=== PATIENT | male | born 1940 | race Caucasian/White ===

== ENCOUNTER → 2021-03-09 | Outpatient (CLI) | payer MEDICARE ==
--- NOTE | 2021-03-09 12:05 | CT ---
EXAMINATION TYPE: CT brain wo con DATE OF EXAM: 03/09/2021 COMPARISON: Dizziness HISTORY: dizziness CT DLP: 1047.1 mGycm Automated exposure control for dose reduction was used. FINDINGS: Mild generalized degenerative change of the low attenuation in the white matter which is. No midline shift or mass effect. No acute hemorrhage. Low-attenuation foci within the basal ganglia compatible w ith remote lacunar infarct. Craniocervical junction maintained. Sella turcica has a normal appearance. Orbits are symmetric. Sinu ses are clear. IMPRESSION: DEGENERATIVE AND NONSPECIFIC WHITE MATTER CHANGES MOST TYPICAL REMOTE ISCHEMIA.
--- NOTE | 2021-03-09 16:05 | US ---
EXAMINATION TYPE: US carotid duplex BILAT DATE OF EXAM: 03/09/2021 COMPARISON: NONE CLINICAL HISTORY: R42 DIZZINESS AND GIDDINESS. vertigo, no h/o stroke EXAM MEASUREMENTS: RIGHT: Peak Systolic Velocity (PSV) cm/sec ----- Right CCA: 77.3 ----- Right ICA: 63.8 ----- Right ECA: 7.5 ICA/CCA ratio: 0.8 RIGHT: End Diastole cm/sec ----- Right CCA: 8.4 ----- Right ICA: 20.4 ----- Right ECA: 12.5 LEFT: Peak Systolic Velocity (PSV) cm/sec ----- Left CCA: 106.2 ----- Left ICA: 72.8 ----- Left ECA: 61.4 ICA/CCA ratio: 0.7 LEFT: End Diastole cm/sec ----- Left CCA: 21.4 ----- Left ICA: 23.7 ----- Left ECA: 9.5 VERTEBRALS (direction of flow): Right Vertebral: Antegrade Left Vertebral: Antegrade Rhythm: Normal Mild homogeneous plaque with no significant stenosis seen incidental enlarged left thryoid gland IMPRESSION: 1. Atheromatous plaquing without significant flow-limiting stenosis. 2. Enlarged heterogenous left lobe thyroid. Consider complete thyroid workup with ultrasound. NASCET criteria was used in interpretation of this exam? Criteria for Assigning % of Stenosis / Diameter reduction (Estimation based on the indirect measurements of the internal carotid artery velocities (ICA PSV). 1. Normal (no stenosis)=ICA PSV < 125 cm/s: ratio < 2.0: ICA EDV<40 cm/s. 2. Less than 50% stenosis=ICA PSV < 125 cm/s: ratio < 2.0: ICA EDV<40 cm/s. 3. 50 to 69% stenosis=ICA PSV of 125 to 230 cm/s: ration 2.0 ? 4.0: ICA EDV 40-100 cm/s. 4. Greater than 70% stenosis to near occlusion= ICA PSV > 230 cm/s: ratio > 4.0: ICA EDV > 100 cm/s. 5. Near occlusion= ICA PSV velocities may be low or undetectable: variable ratio and ICA EDV. 6. Total occlusion=unable to detect flow.
== END | disposition home or self-care (01) ==
LOC: RADCTMAIN 10:35
PROVIDERS: ATTEND Family Medicine
DX: R42 Dizziness and giddiness (principal)
CPT/HCPCS: 70450; 93880

== ENCOUNTER → 2021-04-16 | Outpatient (CLI) | payer MEDICARE ==
--- NOTE | 2021-04-16 21:39 | MR ---
EXAMINATION TYPE: MR brain wo/w con DATE OF EXAM: 04/16/2021 COMPARISON: CT brain 03/09/2021 HISTORY: Dizziness, light headed. TECHNIQUE: Multiplanar, multisequence images of the brain and brainstem is performed without and with IV contras t, utilizing 10 mL intravenous Gadavist . FINDINGS: Diffusion weighted images demonstrate no evidence of a recent infarct or other diffusion ab normality. There is no extra-axial fluid collection. Some pericallosal hyperintensity and inversion recovery T2-weighted sequences is noted The ventricular system and cisternal spaces are normal in siz e and appearance. The brain volume is age appropriate, stable there is cortical atrophy, small lacun ar infarct again noted in the basal ganglia on the left. Midline structures demonstrate normal morphology. The craniocervical junction appears within normal limits. Post contrast images demonstrate no abnormal enhancement. The dural venous sinuses appear pa tent. The visualized sinuses are remarkable for inflammatory change in the left maxillary sinus and e thmoid air cells and the globes are intact. IMPRESSION: Age-related changes of atrophy and chronic small vessel ischemia, sinus disease
== END | disposition home or self-care (01) ==
LOC: RADMRIMAIN 19:31
PROVIDERS: ATTEND Family Medicine
DX: I67.82 Cerebral ischemia (principal)
CPT/HCPCS: 70553; A9585

== ENCOUNTER → 2021-04-30 | Outpatient (CLI) | payer MEDICARE ==
--- NOTE | 2021-04-30 16:32 | US ---
EXAMINATION TYPE: US thyroid st tissue head/neck DATE OF EXAM: 04/30/2021 COMPARISON: NONE CLINICAL HISTORY: E04.1 nontoxic single thyroid nodule. nodule seen on previous carotid US GLAND SIZE: Right Lobe: 5.9 x 1.7 x 4.2 cm Overall Parenchyma: heterogenous Left Lobe: 7.8 x 4.8 x 5.3 cm Overall Parenchyma: heterogeneous Isthmus Thickness: 1.0 cm NODULES RIGHT: # of nodules measured on right: 1 1. 3.8 X 1.4 x 2.3 cm, mid solid or almost completely solid, isoechoic nodule, which is taller than wide, with ill-defined margins, without echogenic foci. Prior size: [employer] LEFT: # of nodules measured on left: 1 1. 5.7 X 4.7 x 3.8 cm, mid, solid or almost completely solid, hyperechoic nodule, which is wider th an tall, with smooth margins, without echogenic foci. Prior size: [employer] ISTHMUS: # of nodules measured in the isthmus: 0 Bilateral neck scanned, no evidence of lymphadenopathy. Heterogeneous enlarged thyroid with nodules marked by the technologist, on the right not convinced tr ue nodule. Left nodule is larger with some better visualized margins at least on transverse imaging. IMPRESSION: As above. Dominant 5.7 cm left thyroid nodule. TR3 lesion. Mildly suspicious. FNA samplin g is advised. 2017 ACR TI-RADS LEVEL: TR-RADS 3 - Mildly Suspicious: Follow if > 1.5 cm, FNA if > 2.5 cm *Highest TI-RADS level nodule reported
== END | disposition home or self-care (01) ==
LOC: RADUSWWP 15:09
PROVIDERS: ATTEND Family Medicine
DX: E04.2 Nontoxic multinodular goiter (principal)
CPT/HCPCS: 76536

== ENCOUNTER 2021-06-28 09:15 | Day surgery (SDC) | payer MEDICARE ==
[2021-06-28 11:00] VITALS: TEMP 98.1
[2021-06-28 11:01] VITALS: PULSE 64
[2021-06-28 11:02] VITALS: BP 113/64; RESP 18
--- NOTE | 2021-06-28 11:14 | US ---
ULTRASOUND GUIDED FNA THYROID BIOPSY: CLINICAL HISTORY: Bilateral thyroid nodules FINDINGS: The procedure was explained to the patient. The risks, complications, benefits and alternatives were discussed and any questions were answered. Informed consent was obtained. Patient was placed supin e on the ultrasound table and prepped and draped in the usual sterile fashion. Utilizing a 25 gauge needle, five passes were made into the requested large right and large left thyroid nodule. Patient was stable throughout the procedure. Pathology is pending. All elements of maximal barrier technique were utilized. IMPRESSION: 1. Successful ultrasound guided FNA thyroid biopsy.
== END 2021-06-28 11:05 | disposition home or self-care (01) ==
LOC: RADPROMAIN 09:15
PROVIDERS: ATTEND Otolaryngology
DX: E04.1 Nontoxic single thyroid nodule (principal)
CPT/HCPCS: 10005; 10006; 88173; 88305

== ENCOUNTER → 2022-02-13 | Outpatient (CLI) | payer MEDICARE ==
--- NOTE | 2022-02-13 08:14 | US ---
EXAMINATION TYPE: US duplex aorta DATE OF EXAM: 02/13/2022 COMPARISON: NONE CLINICAL HISTORY: Z13.6 SCREENING FOR CARDIOVASCULAR DISORDERS. AAA screening. EXAM MEASUREMENTS: Abdominal Aorta: Proximal: Obscured by overlying bowel gas. Mid: 2.4 x 2.1 cm. Distal: 1.6 x 2.4 cm. Bifurcation: Right: 1.2 x 1.2 cm. Left: 1.2 x 1.3 cm. IMPRESSION: No evidence for aneurysm
== END | disposition home or self-care (01) ==
LOC: RADUSWWP 06:54
PROVIDERS: ATTEND Family Medicine
DX: Z13.6 Encounter for screening for cardiovascular disorders (principal)
CPT/HCPCS: 93979

== ENCOUNTER → 2022-12-27 | Outpatient (CLI) | payer MEDICARE ==
[2022-12-27 11:45] LABS: T4, Free (Free Thyroxine) 1.15 ng/dL (0.800-1.800)
== END | disposition home or self-care (01) ==
LOC: LABWHC1 07:15
PROVIDERS: ATTEND Otolaryngology
DX: E04.1 Nontoxic single thyroid nodule (principal)
CPT/HCPCS: 36415; 84439; 84443

== ENCOUNTER 2023-01-16 12:52 | Day surgery (SDC) | payer MEDICARE ==
--- NOTE | 2023-01-16 14:33 | US ---
ULTRASOUND GUIDED THYROID CORE BIOPSY: CLINICAL HISTORY: Request for core biopsy left thyroid nodule FINDINGS: The procedure was explained to the patient. The risks, complications, benefits and alternatives were discussed and any questions were answered. Informed consent was obtained. Patient was placed supin e on the ultrasound table and prepped and draped in the usual sterile fashion. Utilizing a 18 gauge needle, single pass was made into the requested left thyroid nodule. Patient was stable throughout the procedure. Pathology is pending. All elements of maximal barrier technique were utilized. IMPRESSION: 1. Successful ultrasound guided left thyroid nodule thyroid core biopsy.
[2023-01-16 15:29] VITALS: BP 130/72; PULSE 68; RESP 18; TEMP 97.8
== END 2023-01-16 14:30 | disposition home or self-care (01) ==
LOC: RADPROMAIN 12:52
PROVIDERS: ATTEND Otolaryngology
DX: D34 Benign neoplasm of thyroid gland (principal)
CPT/HCPCS: 21550; 88305

== ENCOUNTER → 2023-11-14 | Outpatient (CLI) | payer MEDICARE ==
--- NOTE | 2023-11-15 10:46 | US ---
EXAMINATION TYPE: US thyroid st tissue head/neck DATE OF EXAM: 11/14/2023 COMPARISON: 11/29/2022 CLINICAL INDICATION: Male, 83 years old with history of E04.1 THYROID NODULE; GLAND SIZE: Right Lobe: 5.2 x 2.8 x cm Overall Parenchyma: Mildly heterogeneous Left Lobe: 7.2 x 5.3 x 4.4 cm Overall Parenchyma: Mildly heterogeneous Isthmus Thickness: 0.6 cm cm NODULES RIGHT: # of nodules measured on right: 1? vs mulitple grouped together 1. 3.8 X 2.2 x 2.3 cm, lower mid, solid or almost completely solid, isoechoic nodule, which is wide r than tall, with lobulated or irregular margins, without echogenic foci. Prior size: 2.9 x 2.8 x 2.1 cm LEFT: # of nodules measured on left: 1 1. 5.6 X 4.1 x 4.3 cm, mid mid, solid or almost completely solid, hypoechoic nodule, which is wider than tall, with ill-defined margins, without echogenic foci. Prior size: 5.9 x 4.2 x 4.9 cm ISTHMUS: # of nodules measured in the isthmus: 0 Bilateral neck scanned, no evidence of lymphadenopathy. IMPRESSION: 1. Moderate cardiomegaly. 2. Right lobe nodule increasing in size from 2.8 x 2.9 x 2.1 cm to 3.8 x 2.2 x 2.3 cm. TR 4 3. Left lobe nodule stable or slightly smaller in size. TR 4 4. TR 4 nodule in the right lobe has increased in size and is suspicious. Fine needle aspiration is r ecommended. 2017 ACR TI-RADS LEVEL: 4 *Highest TI-RADS level nodule reported
== END | disposition home or self-care (01) ==
LOC: RADUSWWP 13:57
PROVIDERS: ATTEND Otolaryngology
DX: E04.2 Nontoxic multinodular goiter (principal); I51.7 Cardiomegaly
CPT/HCPCS: 76536

== ENCOUNTER 2023-11-28 12:48 | Day surgery (SDC) | payer MEDICARE ==
[2023-11-28 14:01] VITALS: RESP 16; TEMP 97.7
--- NOTE | 2023-11-28 14:17 | US ---
ULTRASOUND GUIDED FNA THYROID BIOPSY: CLINICAL HISTORY: Right thyroid nodule FINDINGS: The procedure was explained to the patient. The risks, complications, benefits and alternatives were discussed and any questions were answered. Informed consent was obtained. Patient was placed supin e on the ultrasound table and prepped and draped in the usual sterile fashion. Utilizing a 25 gauge needle, five passes were made into the requested right thyroid nodule. Patient was stable throughout the procedure. Pathology is pending. All elements of maximal barrier technique were utilized. IMPRESSION: 1. Successful ultrasound guided FNA thyroid biopsy.
[2023-11-28 15:27] VITALS: BP 116/72; PULSE 65
== END 2023-11-28 14:35 | disposition home or self-care (01) ==
LOC: RADPROMAIN 12:48
PROVIDERS: ATTEND Otolaryngology
DX: E04.1 Nontoxic single thyroid nodule (principal)
CPT/HCPCS: 10005; 88173; 88305